=== PATIENT | female | born 1945 | race Caucasian/White ===

== ENCOUNTER 2019-12-29 16:32 | Emergency (ER) | payer OTHER ==
[~2019-12-29] VITALS: Ht 160 cm; Wt 62.0 kg
[2019-12-29 17:02] VITALS: BP 190/90
[2019-12-29] MEDS ORDERED: NEOM28.32 TP (17:15)
[2019-12-29] MEDS ORDERED: SULF1TAB24 PO (17:15)
--- NOTE | 2019-12-29 17:15 | PHYS DOC ---
Past History Past Medical History: Hypertension Drug Use: None General Adult EDM: Chief Complaint: SKIN PROBLEM HPI: HPI: Patient is a 70-year-old female who has had a rash on her left forearm on extensor side distally for the last month. Patient denies any history of trauma or any new soaps detergents or jewelry or watches but has been put hydrocortisone on the area but has not seek medical care for this. Patient complains of erythema and pain that is described as burning and itching. Patient denies any systemic symptoms such as fever or shortness of breath. Review of Systems: Review of Systems: Constitutional: Denies fever or chills Eyes: Denies change in visual acuity HENT: Denies nasal congestion or sore throat Respiratory: Denies cough or shortness of breath Cardiovascular: Denies chest pain or edema GI: Denies abdominal pain, nausea, vomiting, bloody stools or diarrhea : Denies dysuria Musculoskeletal: Denies back pain or joint pain Integument: Complains of rash to the left forearm Neurologic: Denies headache, focal weakness or sensory changes Endocrine: Denies polyuria or polydipsia Lymphatic: Denies swollen glands Psychiatric: Denies depression or anxiety Physical Exam: PE: Constitutional: Well developed, well nourished, no acute distress, non-toxic appearance. [] HENT: Normocephalic, atraumatic, bilateral external ears normal, no trismus nose normal. [] Eyes: PERRLA, EOMI, conjunctiva normal, no discharge. [] Neck: Normal range of motion, no tenderness, supple, no stridor. [] Cardiovascular:Heart rate regular rhythm, peripheral pulses are intact cap refill is brisk Lungs & Thorax: Bilateral breath sounds clear, no respiratory distress Abdomen: soft, no tenderness, no masses, no pulsatile masses. [] Skin: Erythematous rash to the dorsum of the left forearm on the extensor side more distally located. There is a central area of scabbing. No significant warmth to the area Back: No tenderness, no CVA tenderness. [] Extremities: no cyanosis, no clubbing, ROM intact, extremities otherwise normal other than described above. No evidence of flexor tenosynovitis. No pain with range of motion of the wrist. Neurologic: Alert and oriented X 3, normal motor function, normal sensory function, no focal deficits noted. [] Psychologic: Affect normal, judgement normal, mood normal. [] EKG: EKG: [] Radiology/Procedures: Radiology/Procedures: [] Heart Score: Risk Factors: Risk Factors: DM, Current or recent (<one month) smoker, HTN, HLP, family history of CAD, obesity. Risk Scores: Score 0 - 3: 2.5% MACE over next 6 weeks - Discharge Home Score 4 - 6: 20.3% MACE over next 6 weeks - Admit for Clinical Observation Score 7 - 10: 72.7% MACE over next 6 weeks - Early Invasive Strategies Course & Med Decision Making: Course & Med Decision Making Pertinent Labs and Imaging studies reviewed. (See chart for details) [] 74-year-old female with a rash. Patient denies any contact dermatitis etiologies. Patient will be treated with Neosporin cream which she will need to put on once a day. Patient told to leave the area wrapped. Patient was placed on antibiotics for cellulitic component. Patient given return precautions. Dragon Disclaimer: Dragnneka Disclaimer: This electronic medical record was generated, in whole or in part, using a voice recognition dictation system. Departure Departure: Impression: Primary Impression: Cellulitis of left forearm Disposition: 01 DC HOME SELF CARE/HOMELESS Condition: STABLE Referrals: PCPHOLLIE (PCP) [facility] [address] [place] [address] [facility] [address] [place] [address] [facility] [address] Patient Instructions: Cellulitis Additional Instructions: EMERGENCY DEPARTMENT GENERAL DISCHARGE INSTRUCTIONS THANK YOU for coming to [facility] Emergency Department (ED) today and trusting us with your care. We trust that you had a positive experience in our Emergency Department. If you wish to speak to the department Management you can contact the emergency department at YOUR FOLLOW UP INSTRUCTIONS ARE FOLLOWS: Do you have a private doctor? If you do not have a private doctor, please ask for a resource list of physicians or clinics that may be able to assist you with follow up care. The Emergency Physician has interpreted your x-rays. The X-ray specialist will also review them. If there is a change in the findings you will be notified in 48 hours when at all possible. A lab test or lab culture may have been done, your results will be reviewed and you will be notified if you need a change in treatment. ADDITIONAL INSTRUCTIONS AND INFORMATION Your care today has been supervised by a physician who is specially trained in emergency care. Many problems require more than one evaluation for a complete diagnosis and treatment. We recommend that you schedule your follow up appointment as recommended to ensure complete treatment of your illness or injury. If you are unable to obtain follow up care and continue to have a problem, or if your condition worsens we recommend that you return to the ED. We are not able to safely determine your condition over the phone nor are we able to give sound medical advice over the phone. For these safety reasons, if you call for medical advice we will ask you to come to the ED for further evaluation If you have any questions regarding these discharge instructions please call the ED at . SAFETY INFORMATION In the interest of safety, wellness, and injury prevention; we encourage you to wear your seatbelt, if you smoke; quit smoking, and we encourage your family to use protective helmet for bicycling and other sporting events that present an increased risk for head injury. IF YOUR SYMPTOMS WORSEN OR NEW SYMPTOMS DEVELOP, OR YOU HAVE CONCERNS ABOUT YOUR CONDITION; OR IF YOUR CONDITION WORSENS WHILE YOU ARE WAITING FOR YOUR FOLLOW UP APPOINTMENT; EITHER CONTACT YOUR PRIMARY CARE DOCTOR, THE PHYSICIAN WHOSE NAME AND NUMBER YOU WERE GIVEN, OR RETURN TO THE ED IMMEDIATELY. Clean the wound with soap and water and wipe off excess cream once a day. Apply a thin layer of Neosporin and place a dressing above the wound. Leave intact till the next day. Scripts Sulfamethoxazole/Trimethoprim (BACTRIM DS TABLET) 1 Each Tablet 1 TAB PO BID for infection for 10 Days, #20 TAB 0 Refills Prov: WOODY ROGRES MD 12/29/19 Neomy Sulf/Bacitrac Zn/Poly (NEOSPORIN OINTMENT) 28.3 Gm Oint...g. 28.3 GM TP DAILY for cellulitis, #1 TUBE Prov: WOODY ROGERS MD 12/29/19 WOODY ROGERS MD Dec 29, 2019 17:15
== END 2019-12-29 17:30 | disposition home or self-care (01) ==
LOC: ER 16:32
DX: L03.114 Cellulitis of left upper limb (principal); I10 Essential (primary) hypertension
CPT/HCPCS: 99283

== ENCOUNTER → 2020-03-15 | Outpatient (CLI) | payer MEDICARE ==
[~2020-03-15] MED LIST: NEOM28.32 TP; SULF1TAB24 PO
--- NOTE | 2020-03-15 16:23 | RAD ---
INDICATION: Osteoporosis screening. Postmenopausal screening COMPARISON: None. TECHNIQUE: Bone densitometry was performed through the lumbar spine and proximal femur. FINDINGS: Lumbar Spine: BMD: 1.0 T-Score: -1.4 Proximal Femur: BMD: 0.68 T-Score: -2.3 IMPRESSION: 1. Lumbar spine falls within the osteopenic range. 2. Proximal femur falls within the osteopenic range. Electronically signed by: Everett Carbone MD (03/15/2020 4:21 PM) [id number]
--- NOTE | 2020-03-16 09:26 | RAD ---
PQRS Compliance Statement: One or more of the following individualized dose reduction techniques were utilized for this examinat ion: 1. Automated exposure control 2. Adjustment of the mA and/or kV according to patient size 3. Use of iterative reconstruction technique CT THORAX WO Clinical Indication: Lung screening, long history of smoking. Comparison: None. TECHNIQUE: Helical CT imaging of the chest is performed without IV contrast. Findings: There is a 1 cm left axillary lymph node with mild cortical thickening. A normal fatty hilum is seen. Atherosclerotic aortic arch. There is no mediastinal adenopathy. The great vessels are normal calibe r. There is three-vessel coronary artery disease. There is severe mitral annular calcification. There is calcific aortic valve stenosis. Cardiac size is normal, no pericardial effusion. There is no pleural abnormality. The central airways are patent. There is a 6 mm noncalcified nodule in the right lower lobe, image 63. There is a 3 mm nodule in the superior segment of the left lower l obe, image 54. There is a 3 mm nodule in the left lower lobe, image 62. There is a 3 mm subpleural no dule in the right upper lobe, image 36. The visualized upper abdomen is unremarkable. The thoracic spine alignment is maintained. IMPRESSION: 1. There are a few noncalcified pulmonary nodules, largest measuring 6 mm in the right lower lobe. R ecommend CT chest follow-up in 12 months per Fleischner Society guidelines. 2. There is a reactive appearing left axillary lymph node. Suggest attention on follow-up imaging. Electronically signed by: Lewis Barajas MD (03/16/2020 9:23 AM) [id number]
--- NOTE | 2020-03-24 10:48 | RAD ---
DATE: 03/15/2020 10:57 AM EXAM: DIGITAL SCREEN BILAT W/CAD HISTORY: Screening COMPARISON: None currently available. Bilateral CC and MLO views of the breasts were performed. Bilateral breast tomosynthesis was performed in CC and MLO projections. This study was interpreted with the benefit of Computerized Aided Detection (CAD). FINDINGS: Breast Density: FATTY The Breast Parenchyma is primarily fatty replaced. Breast parenchyma level density A. No suspicious masses, microcalcifications or architectural distortion is present to suggest malignancy in either breast. The visualized axillae are unremarkable. IMPRESSION: No mammographic evidence of malignancy. BI-RADS CATEGORY: 1 NEGATIVE RECOMMENDED FOLLOW-UP: 12M 12 MONTH FOLLOW-UP Annual screening mammography is recommended, unless clinically indicated sooner based on symptoms or change in physical exam. PQRS compliance statement: Patient information was entered into a reminder system with a target due date for the next mammogram. Mammography is a sensitive method for finding small breast cancers, but it does not detect them all and is not a substitute for careful clinical examination. A negative mammogram does not negate a clinically suspicious finding and should not result in delay in biopsying a clinically suspicious abnormality. "Our facility is accredited by the [employer] Mammography Program."
== END ==
LOC: MAMMO 09:46
PROVIDERS: ATTEND Family Medicine
DX: Z12.31 Encounter for screening mammogram for malignant neoplasm of breast (principal); M85.88 Other specified disorders of bone density and structure, other site; R91.8 Other nonspecific abnormal finding of lung field; Z87.891 Personal history of nicotine dependence
CPT/HCPCS: 71250; 77067; 77080

== ENCOUNTER → 2020-03-31 | Outpatient (CLI) | payer MEDICARE ==
--- NOTE | 2020-04-01 16:59 | RAD ---
EXAM: Ultrasound left axilla. HISTORY: Left axillary adenopathy on CT. COMPARISON: 03/15/2020. FINDINGS: Sonography of the left axilla was performed. A left axillary lymph node measures 1.2 x 0.8 x 0.7 cm. One of its cortices is prominent at 4.4 mm. A nother measures 1.2 x 0.9 x 0.6 cm with a normal cortical thickness of 2.7 mm. No definitively pathol ogic nodes are seen. IMPRESSION: 1. One left axillary node demonstrates a prominent cortex at 4.4 mm. These are asymmetrically more pr ominent on the left than right. Correlate for left upper extremity inflammation or other causes. Sono graphic follow-up or ultrasound-guided biopsy could be performed if there is persistent concern. Electronically signed by: Wojciech Quesada MD (04/01/2020 4:57 PM) [id number]
== END ==
LOC: US 14:53
PROVIDERS: ATTEND Family Medicine
DX: R59.0 Localized enlarged lymph nodes (principal)
CPT/HCPCS: 76881